=== PATIENT | female | born 1995 ===

== ENCOUNTER 2016-08-28 23:32 | Emergency (ER) | payer SELFPAY ==
[~2016-08-28] VITALS: Wt 83.5 kg
--- NOTE | 2016-08-29 00:36 | ERD ---
ER Documentation Chief Complaint Date/Time DATE: 08/29/16 TIME: 00:20 Chief Complaint Left arm pain, Pt claims IV meth use and missed a vein HPI 21-year-old female presents to emergency department for complaints of left arm pain and numbness and tingling after accidentally infiltrated of pain in the left arm while injecting methamphetamine. Patient felt the normal reactions such as palpitations but was complaining of numbness and tingling, worried about infiltrated area in the left arm. The swelling has improved and is less now. ROS All systems reviewed and are negative except as per history of present illness. Medications Home Meds Reported Medications [none] Unknown Strength No Conflict Check 08/29/16 Allergies Allergies: Coded Allergies: No Known Allergy (Unverified , 08/28/16) PMhx/Soc Medical and Surgical Hx: pt denies Medical Hx, pt denies Surgical Hx History of Surgery: No Anesthesia Reaction: No Hx Neurological Disorder: No Hx Respiratory Disorders: No Hx Cardiac Disorders: No Hx Psychiatric Problems: No Hx Substance Use: Yes Hx Tobacco Use: Yes Smoking Status: Heavy tobacco smoker FmHx Family History: No coronary disease, No diabetes, No other Physical Exam Vitals Vital Signs Date Time Temp Pulse Resp B/P Pulse Ox O2 Delivery O2 Flow Rate FiO2 08/28/16 23:44 98.2 125 20 129/79 99 Physical Exam GENERAL: The patient is well developed and appropriate for usual state of health, in no apparent distress. CHEST: Clear to auscultation bilaterally. There are no rales, wheezes or rhonchi. HEART: Tachycardic rate and rhythm. No murmurs, clicks, rubs or gallops. No S3 or S4. ABDOMEN: Soft, nontender and nondistended. Good bowel sounds. No rebound or guarding. No gross peritonitis. No gross organomegaly or masses. No Jimenez sign or McBurney point tenderness. BACK: No midline or flank tenderness. EXTREMITIES: Equal pulses bilaterally. There is no peripheral clubbing, cyanosis or edema. No focal swelling or erythema. Full range of motion. Grossly neurovascularly intact. NEURO: Alert and oriented. Cranial nerves 2-12 intact. Motor strength in all 4 extremities with 5/5 strength. Sensation grossly intact. Normal speech and gait. SKIN: There is mild induration noted in the left arm, no redness, no bruising noted. There is no apparent ecchymosis or petechia. The skin is warm and dry. HEMATOLOGIC AND LYMPHATIC: There is no evidence of excessive bruising or lymphedema. No gross cervical, axillary, or inguinal lymphadenopathy. Procedures/MDM Medical Decision making: Patient symptoms suspect is consistent with infiltration of the left arm, most likely feeling the effects of methamphetamine at this time. Patient's heart rate is elevated patient's which is typical after meth use. Patient does not have any symptoms of any neurovascular compromise. The symptoms of respiratory distress. No chest pain at this time. No dizziness. No dyspnea on exertion. Patient was advised to follow-up with primary care doctor in 2-3 days, patient was advised apply warm compress on the left arm, patient was advised to avoid using methamphetamine. Patient is advised to return to emergency department for worsening symptoms. Disposition: Home. Stable Departure Diagnosis: Primary Impression: IV infiltration Encounter type: initial encounter Qualified Code: T80.1XXA - IV infiltration , initial encounter Additional Impression: Methamphetamine abuse Condition: Stable Patient Instructions: Understanding Methamphetamine Abuse and Addiction ALICE ABBOTT NP Aug 29, 2016 00:31
== END 2016-08-29 02:17 | disposition home or self-care (01) ==
LOC: FTE 23:32
DX: T80.1XXA Vascular complications following infusion, transfusion and therapeutic injection, initial encounter (principal); F15.10 Other stimulant abuse, uncomplicated; F17.210 Nicotine dependence, cigarettes, uncomplicated; Y82.8 Other medical devices associated with adverse incidents
CPT/HCPCS: 99282